=== PATIENT | male | born 1995 | race Two or more races ===

== ENCOUNTER 2025-03-18 20:02 | Emergency (ER) | payer OTHER ==
[~2025-03-18] VITALS: Ht 172.7 cm; Wt 90.7 kg
[~2025-03-18 20:02] MED LIST: KETO10TA2 PO
[2025-03-18 21:52] VITALS: BP 127/84; O2SAT 98
[2025-03-18] MEDS ORDERED: TETANUS & DIPHTHERIA TOX,ADULT 0.5 ML VIAL IM ONE (22:30)
[2025-03-18] MEDS ORDERED: DEXAMETHASONE 4 MG TABLET PO ONE (22:30)
[2025-03-18] MEDS ORDERED: CEFAZOLIN SODIUM 1,000 MG VIAL IM ONE (22:30)
== END 2025-03-19 05:21 | disposition home or self-care (01) ==
LOC: ER 20:03
DX: S61.422A Laceration with foreign body of left hand, initial encounter (principal); W26.0XXA Contact with knife, initial encounter; Y93.89 Activity, other specified; Y92.010 Kitchen of single-family (private) house as the place of occurrence of the external cause
CPT/HCPCS: 12001; 90471; 90714; J1670